=== PATIENT | female | born 1995 | race African-American/Black ===

== ENCOUNTER 2019-11-23 02:00 | Inpatient (IN) ==
[2019-11-23] MEDS ORDERED: MEPERIDINE 50 MG/1 ML VIAL IV PRN (03:05)
[2019-11-23] MEDS ORDERED: PROMETHAZINE 25 MG/1 ML VIAL IM PRN (03:05)
[2019-11-23] MEDS ORDERED: LACTATED RINGERS 1,000 ML IV ONE ×2 (04:23→04:41)
[2019-11-23] MEDS ORDERED: ONDANSETRON 4 MG/2 ML VIAL IV PRN (04:36)
[2019-11-23] MEDS ORDERED: hydrOXYzine HCL 25 MG/1 ML VIAL IM PRN (04:41)
[2019-11-23] MEDS ORDERED: ePHEDrine 50 MG/ML VIAL IV PRN (04:41)
[2019-11-23] MEDS ORDERED: NALOXONE 0.4 MG/ML VIAL IV PRN (04:41)
[2019-11-23] MEDS ORDERED: CITRIC ACID/SODIUM CITRATE 30 ML UDCUP PO ONE (04:41)
[2019-11-23] MEDS ORDERED: diphenhydrAMINE 50 MG/1 ML VIAL IV PRN ×2 (04:41)
[2019-11-23] MEDS ORDERED: FAMOTIDINE 20 MG/2 ML VIAL IV ONE (04:41)
[2019-11-23] MEDS ORDERED: fentaNYL 2 MCG/ROPIV 0.2% EPID 100 ML EPIDURAL SCH (05:00)
[2019-11-23] MEDS ORDERED: LACTATED RINGERS 1,000 ML IV SCH (05:00)
[2019-11-23 05:25] LABS: Basophils % 0.4 % (0.0-0.8); Eosinophils # 0.2 10*3/uL (0.0-0.87); Eosinophils % 2.9 % (0.00-10.9); Hematocrit 33.3 VOL% (35.7-47.0); Hemoglobin 10.3 GM/DL (12.0-16.0); Immature Granulocytes % 0.4 %; Immature Granulocytes Absolute 0.03 #; Lymphocytes # 2.6 10*3/uL (1.4-4.0); Lymphocytes % 31.3 % (21.3-54.2); Mean Corpuscular HGB Conc 30.9 GM/DL (32-36); Mean Corpuscular Volume 99.1 FL (87-102); Mean Platelet Volume 13.3 FL (9.6-12.0); Monocytes % 14.3 % (1.7-12.7); Neutrophils % 50.7 % (38.7-73.9); Platelet Count 169 T/CUMM (130-400); Red Blood Count 3.36 MC/CUMM (3.8-5.5); Red Cell Distribution Width 13.4 % (9.3-17.3); White Blood Count 8.3 T/CUMM (4-12)
[2019-11-23 05:42] LABS: Hypochromasia Slight; Ovalocytes Slight; Platelet Estimate Adequate
[2019-11-23] MEDS ORDERED: OXYTOCIN/LR 20 UNIT/1,000 ML BAG IV SCH (06:30)
[2019-11-23 06:59] LABS: Apearance,Urine CLEAR (Clear); Bacteria,Urine Occasional /HPF (Few); Bilirubin,Urine Negative (Negative); Blood, Urine Small mg/dL (Negative); Glucose,Urine (UA) Negative (Negative); Ketones,Urine 5 mg/dL (Negative); Mucus,Urine Occasional /LPF (Occasional); Nitrite,Urine Negative (Negative); Protein,Urine Negative; RBC,Urine <1 /HPF (0-4); Squamous Epithelial Cell,Urine Occasional /HPF (0-10); Urine Color Yellow (Yellow); Urine Specific Gravity 1.005 (1.001-1.035); Urine Urobilinogen < 2.0 EU/DL (0.2-1.0)
[2019-11-23] MEDS ORDERED: ACETAMINOPHEN 325 MG TABLET PO PRN (07:58)
[2019-11-23] MEDS ORDERED: HYDROCORTISONE 2.5% RECTAL CREAM 30 GM TUBE TOP PRN (07:58)
[2019-11-23] MEDS ORDERED: DIPH/TET/ACEL PERT BOOSTER VACCINE 0.5 ML VIAL IM ONE (07:58)
[2019-11-23] MEDS ORDERED: WITCH HAZEL PADS 100/JAR TOP PRN (07:58)
[2019-11-23] MEDS ORDERED: MEASLES/MUMPS/RUBELLA VACCINE 0.5 ML VIAL SUBCUT ONE (07:58)
[2019-11-23] MEDS ORDERED: BISACODYL 10 MG SUPP RECTAL PRN (07:58)
[2019-11-23] MEDS ORDERED: BENZOCAINE 20%/MENTHOL 0.5% SPRAY 56 GM CAN TOP PRN (07:58)
[2019-11-23] MEDS ORDERED: LANOLIN 50% CREAM 0.3 OZ TUBE TOP PRN (07:58)
[2019-11-23 08:11] LABS: Cord Venous Blood HCO3 22.6 MMOL/L; Cord Venous Blood PCO2 40.5 MMHG
[2019-11-23] MEDS: FERROUS SULFATE 325 MG TABLET PO SCH ×2 (11:44→21:20)
[2019-11-23] MEDS: MULTIVITAMIN (PRENATAL) TABLET PO SCH (11:44)
[2019-11-23] MEDS: DOCUSATE SODIUM 100 MG CAPSULE PO SCH ×2 (11:44→21:20)
[2019-11-23] MEDS: ACETAMINOPHEN/CODEINE 300-30 MG TABLET PO PRN (19:05)
[2019-11-23] MEDS ORDERED: diphenhydrAMINE CAP 25 MG CAPSULE PO PRN (22:21)
[2019-11-24] MEDS: IBUPROFEN 800 MG TABLET PO PRN ×3 (02:04→22:14)
[2019-11-24 04:16] LABS: Basophils % 0.3 % (0.0-0.8); Eosinophils # 0.2 10*3/uL (0.0-0.87); Eosinophils % 2.3 % (0.00-10.9); Hematocrit 31.1 VOL% (35.7-47.0); Hemoglobin 10.2 GM/DL (12.0-16.0); Immature Granulocytes % 0.5 %; Immature Granulocytes Absolute 0.05 #; Lymphocytes # 3.2 10*3/uL (1.4-4.0); Lymphocytes % 30.3 % (21.3-54.2); Mean Corpuscular HGB Conc 32.8 GM/DL (32-36); Mean Platelet Volume 13.3 FL (9.6-12.0); Monocytes % 11.8 % (1.7-12.7); Neutrophils % 54.8 % (38.7-73.9); Platelet Count 141 T/CUMM (130-400); Red Blood Count 3.38 MC/CUMM (3.8-5.5); Red Cell Distribution Width 13.3 % (9.3-17.3); White Blood Count 10.4 T/CUMM (4-12)
[2019-11-24 04:49] LABS: Hypochromasia 1+; Platelet Estimate Adequate
[2019-11-24] MEDS: FERROUS SULFATE 325 MG TABLET PO SCH ×2 (09:30→20:12)
[2019-11-24] MEDS: MULTIVITAMIN (PRENATAL) TABLET PO SCH (09:30)
[2019-11-24] MEDS: DOCUSATE SODIUM 100 MG CAPSULE PO SCH ×2 (09:30→20:12)
[2019-11-24] MEDS: ACETAMINOPHEN/CODEINE 300-30 MG TABLET PO PRN (15:58)
[2019-11-25] MEDS: IBUPROFEN 800 MG TABLET PO PRN (04:14)
[2019-11-25 08:50] VITALS: BP 94/61
[2019-11-25] MEDS: MULTIVITAMIN (PRENATAL) TABLET PO SCH (10:30)
[2019-11-25] MEDS: DOCUSATE SODIUM 100 MG CAPSULE PO SCH (10:30)
[2019-11-25] MEDS: FERROUS SULFATE 325 MG TABLET PO SCH (10:30)
== END 2019-11-25 13:15 | disposition home or self-care (01) | DRG 560 ==
LOC: N.LDOUT 02:00 → N.LD 02:02 → N.OB 10:10
PROVIDERS: ADMIT Obstetrics & Gynecology; ATTEND Obstetrics & Gynecology